=== PATIENT | male | born 1990 | race Caucasian/White ===

== ENCOUNTER 2023-06-19 19:47 | Emergency (ER) | payer MEDICAID ==
[~2023-06-19] VITALS: Ht 185.4 cm; Wt 93.9 kg
[2023-06-19 20:20] VITALS: BP 125/90; PULSE 96; RESP 18; TEMP 98; O2SAT 98
[2023-06-19] MEDS ORDERED: BACITRACIN OINT 500 UNITS/GM PKT TP ONE (22:05)
[2023-06-19] MEDS ORDERED: BACO TP (22:06)
[2023-06-19] MEDS ORDERED: IBUP-2213 PO (22:06)
[2023-06-19 22:13] VITALS: BP 125/90; PULSE 96; RESP 18; TEMP 98; O2SAT 98
== END 2023-06-19 22:13 | disposition home or self-care (01) ==
LOC: MED 19:47
DX: S01.81XA Laceration without foreign body of other part of head, initial encounter (principal); Z79.1 Long term (current) use of non-steroidal anti-inflammatories (NSAID); Z79.2 Long term (current) use of antibiotics; W01.198A Fall on same level from slipping, tripping and stumbling with subsequent striking against other object, initial encounter; Y92.89 Other specified places as the place of occurrence of the external cause; Y93.89 Activity, other specified; Y99.8 Other external cause status
CPT/HCPCS: 12013; 90471; 90715; 99283